=== PATIENT | female | born 1980 | race Two or more races ===

== ENCOUNTER 2023-10-22 06:24 | Day surgery (SDC) | payer BC, SELFPAY ==
[2023-10-22] VITALS (7 sets, daily range): BP systolic 101–123; BP diastolic 67–76; BMI 20.8
[2023-10-22] MEDS: NORMOSOL-R 1000 IV (10:27)
== END 2023-10-22 15:17 | disposition home or self-care (01) ==
LOC: SDS 06:24
PROVIDERS: ATTENDING PHYSICIAN Otolaryngology
DX: H65.92 Unspecified nonsuppurative otitis media, left ear (principal); H69.92 Unspecified Eustachian tube disorder, left ear; H90.2 Conductive hearing loss, unspecified
CPT/HCPCS: 69436